=== PATIENT | male | born 1965 | race Caucasian/White ===

== ENCOUNTER 2019-02-27 18:35 | Emergency (ER) | payer BC ==
[2019-02-27 18:42] VITALS: BP 149/94
--- NOTE | 2019-02-27 18:44 | EDM.PDOC ---
ED HPI GENERAL MEDICAL PROBLEM - General Chief Complaint: ENT Problem Stated Complaint: BLOODY NOSE Time Seen by Provider: 02/27/19 18:44 - History of Present Illness INITIAL COMMENTS - FREE TEXT/NARRATIVE: 53-year-old male presents emergency room with a bloody nose. Started a short time ago about an hour and a half ago. Patient does not have recurrent problems with nosebleeds however he had infrequently would it was an older child. This years allergies been bothering him and he thinks this is what' s triggering. He hasn't had any recent nasal trauma. He's not on blood thinners. He is treated for hypertension but his blood pressure is not that high. He has no other complaints at this time - Related Data Allergies Allergy/AdvReac Type Severity Reaction Status Date / Time flu shot Allergy Fever Uncoded 09/03/16 09:19 Home Meds: Home Meds Aspirin [Adult Low Dose Aspirin EC] 81 mg PO DAILY 02/27/19 [History] Metoprolol Succinate [Toprol Xl] 25 mg PO DAILY 02/27/19 [History] Omeprazole 20 mg PO DAILY 02/27/19 [History] Terazosin [Hytrin] 1 tab PO DAILY 02/27/19 [History] Past Medical History Cardiovascular History: Reports: High Cholesterol, Hypertension Gastrointestinal History: Reports: GERD, Hiatal Hernia - Past Surgical History GI Surgical History: Reports: Yousif Fundoplication Social & Family History - Caffeine Use Caffeine Use: Reports: Coffee - Living Situation & Occupation Living situation: Reports: , with Spouse Occupation: Employed ED ROS ENT - Review of Systems Review Of Systems: See Below Constitutional: Reports: No Symptoms HEENT: Reports: Sinus Problem, Other (Nosebleeds) Respiratory: Reports: No Symptoms Cardiovascular: Reports: No Symptoms GI/Abdominal: Reports: No Symptoms ED EXAM, ENT - Physical Exam Exam: See Below Exam Limited By: No Limitations General Appearance: Alert, No Apparent Distress Nose: Normal Inspection, Other (No active bleeding at this time he's normally pressure to his nose I had him remove the pressure doesn't blow his nose into a wet towel removing a fairly large clots. After this the patient did not have any bleeding. Patient was observed for some time and still was not having any bleeding.) Mouth/Throat: Normal Inspection, Normal Gums, Normal Lips, Normal Oropharynx, Other Head: Atraumatic (No blood in the posterior pharynx), Normocephalic Neck: Normal Inspection, Supple, Non-Tender, Full Range of Motion. No: Lymphadenopathy (L), Lymphadenopathy (R) Respiratory/Chest: No Respiratory Distress, Lungs Clear, Normal Breath Sounds Cardiovascular: Regular Rate, Rhythm, No Edema, No Murmur Course - Vital Signs Last Recorded V/S: Last Vital Signs Temp 37.1 C 02/27/19 18:39 Pulse 81 02/27/19 18:39 Resp 16 02/27/19 18:39 BP 149/94 H 02/27/19 18:39 Pulse Ox 95 02/27/19 18:39 - Re-Assessments/Exams Free Text/Narrative Re-Assessment/Exam: 02/27/19 19:45 Patient is remained stable here in the Emergency room we will have him apply some [place] to the bottom of his nose to help moisturize the air. Discussed in detail several different maneuvers to help stop the bleeding if it should recur and he agrees to return to the emergency room with any uncontrollable bleeding. Departure - Departure Time of Disposition: 19:46 Disposition: Home, Self-Care 01 Clinical Impression: Anterior epistaxis - Discharge Information Referrals: PCP,Not In Area [Primary Care Provider] - Forms: ED Department Discharge Additional Instructions: Return the emergency room with any questions problems or worsening symptoms. Follow-up with your regular provider as needed. Consider sinus irrigation as we discussed.
== END 2019-02-27 20:00 | disposition home or self-care (01) ==
LOC: JD.ED 18:35
DX: R04.0 Epistaxis (principal); K21.9 Gastro-esophageal reflux disease without esophagitis; I10 Essential (primary) hypertension; E78.00 Pure hypercholesterolemia, unspecified; Z79.899 Other long term (current) drug therapy; Z79.82 Long term (current) use of aspirin; Z88.7 Allergy status to serum and vaccine
CPT/HCPCS: 99281; 99283

== ENCOUNTER 2019-03-06 19:29 | Emergency (ER) | payer BC ==
[2019-03-06 19:44] VITALS: BP 155/100
--- NOTE | 2019-03-06 20:01 | EDM.PDOC ---
ED HPI GENERAL MEDICAL PROBLEM - General Chief Complaint: ENT Problem Stated Complaint: NOSE BLEED Time Seen by Provider: 03/06/19 19:43 Source of Information: Reports: Patient, Family (), Old Records (ED 02/27/2019 ), RN Notes Reviewed History Limitations: Reports: No Limitations - History of Present Illness INITIAL COMMENTS - FREE TEXT/NARRATIVE: Medical records indicate that the patient was seen in this ED on 02/27/2019, for epistaxis. It had resolved before the patient was evaluated, after the patient pinched his nostrils. No further treatment was required. The patient now returns the ED stating that he has been having left-sided epistaxis on and off all week. Teresa's episode began around 19:00. It is painless. No recent trauma. The patient states that he pinched his nostrils, sort of, and a white nostril clip was placed on his nose upon arrival to the ED. The patient states that he had frequent epistaxis as a child, but not as an adult. The patient has not had an ENT evaluation of his epistaxis. [facility] - Related Data Allergies Allergy/AdvReac Type Severity Reaction Status Date / Time flu shot Allergy Fever Uncoded 09/03/16 09:19 Home Meds: Home Meds Aspirin [Adult Low Dose Aspirin EC] 81 mg PO DAILY 02/27/19 [History] Metoprolol Succinate [Toprol Xl] 25 mg PO DAILY 02/27/19 [History] Omeprazole 20 mg PO DAILY 02/27/19 [History] Terazosin [Hytrin] 1 tab PO DAILY 02/27/19 [History] Past Medical History Cardiovascular History: Reports: High Cholesterol (untreated), Hypertension Gastrointestinal History: Reports: GERD, Hiatal Hernia Genitourinary History: Reports: BPH Musculoskeletal History: Reports: Gout (suspected, not confirmed) - Past Surgical History HEENT Surgical History: Reports: Oral Surgery (wisdom teeth extraction) GI Surgical History: Reports: Yousif Fundoplication Neurological Surgical History: Reports: Other (See Below) (Right ulnar nerve translocation) Social & Family History - Family History Family Medical History: Noncontributory - Tobacco Use Smoking Status *Q: Never Smoker - Caffeine Use Caffeine Use: Reports: Coffee - Alcohol Use Alcohol Use History: Yes Alcohol Use Frequency: Rarely - Recreational Drug Use Recreational Drug Use: No - Living Situation & Occupation Living situation: Reports: , with Spouse Occupation: Employed ([employer]) ED ROS ENT - Review of Systems Review Of Systems: ROS reveals no pertinent complaints other than HPI. ED EXAM, ENT - Physical Exam Exam: See Below Exam Limited By: No Limitations General Appearance: Alert, WD/WN, No Apparent Distress Eye Exam: Bilateral Eye: EOMI, Normal Inspection Ears: Normal External Exam, Other (Right hearing aid) Nose: Normal Inspection, Normal Mucousa, Other (The mucous membranes are both nostrils is moist with a bloody clear liquid, but no blood or active bleeding, and no visible vessels) Mouth/Throat: Normal Inspection, Normal Gums, Normal Lips, Normal Oropharynx ( Blood-free after gargling with warm water and spitting), Normal Teeth Head: Atraumatic, Normocephalic Neck: Normal Inspection, Supple, Non-Tender, Full Range of Motion. No: Lymphadenopathy (L), Lymphadenopathy (R) Respiratory/Chest: No Respiratory Distress, Lungs Clear, Normal Breath Sounds, No Accessory Muscle Use Cardiovascular: Normal Peripheral Pulses, Regular Rate, Rhythm, No Edema, No Gallop, No JVD, No Murmur, No Rub GI/Abdominal: Normal Bowel Sounds, Soft, Non-Tender, No Organomegaly, No Distention, No Abnormal Bruit, No Mass (Male) Exam: Deferred Rectal (Males) Exam: Deferred Back: Normal Inspection, Full Range of Motion Extremities: Normal Inspection, Normal Range of Motion, No Pedal Edema, Normal Capillary Refill Neurological: Alert, Oriented, Normal Cognition, No Motor/Sensory Deficits Psychiatric: Normal Affect Skin: Warm, Dry, Intact, Normal Color, No Rash Course - Vital Signs Last Recorded V/S: Last Vital Signs Temp 36.7 C 03/06/19 19:42 Pulse 82 03/06/19 19:42 Resp 16 03/06/19 19:42 BP 155/100 H 03/06/19 19:42 Pulse Ox 98 03/06/19 19:42 - Re-Assessments/Exams Free Text/Narrative Re-Assessment/Exam: 03/06/19 19:56 When I first encountered the patient, he had a white nose clip that had been put on by one of our nurses. I had the patient remove it, and blow his nose gently. A small amount of blood clot came out, but no bleeding since. On examination, the epistaxis has stopped, and, unfortunately, no vessels are visible in either nostril. I had the patient gargle with warm water and spit. His posterior oropharynx is currently blood-free. I will have him wait for a period of time, to see if there is evidence of rebleed, however, unless I can see the source of the epistaxis, I will not be able to offer cautery. 03/06/19 20:21 Notified by Hernán GARCIA that the patient reported to her that his nose was bleeding again. I went to evaluate the patient, but he told me that it had already stopped. I reexamined him. Both of his nostrils appear exactly the same as before, without any sign of blood or active bleeding, and no visible vessels , however, there is a scant amount of blood in his posterior oropharynx, consistent with some recent bleeding versus prior blood that made its way down. I had him re-gargle his throat, and will watch him again for a period of time. 03/06/19 20:40 I reexamined the patient. Still no nosebleed, both nostrils looked pristine, and no blood in the posterior oropharynx. I will discharge him home with the recommendation that he start using [id number] oxymetazoline nasal spray twice a day, apply a thin smear of petroleum jelly in each nostril, and follow- up with ENT at the next available appointment. Departure - Departure Time of Disposition: 20:40 Disposition: Home, Self-Care 01 Condition: Good Clinical Impression: Epistaxis - Discharge Information *PRESCRIPTION DRUG MONITORING PROGRAM REVIEWED*: Not Applicable *COPY OF PRESCRIPTION DRUG MONITORING REPORT IN PATIENT MARIANNA: Not Applicable Referrals: Yuliya Lora MD [Primary Care Provider] - Geovany Jason MD [Ordering Only Provider] - Forms: ED Department Discharge Additional Instructions: You were seen in the emergency room for a recurrent left sided nosebleed. Unfortunately, your nosebleed had stopped, and your examination was unremarkable. The source of the nosebleed was not able to be identified. We recommend that you purchase [id number] oxymetazoline in a "pump mist" bottle. [place] one spray up each nostril every 12 hours, for the next 5 days. Do not continue to use it beyond 5 days. We recommend that you apply a thin smear of petroleum jelly to each nostril twice a day, for example, in the morning, and at bedtime. Follow-up with the ENT Dr. Geovany Jason, in [place], at the next available appointment. If any other problems, please do not hesitate to return to the ER.
== END 2019-03-06 21:10 | disposition home or self-care (01) ==
LOC: JD.ED 19:29
DX: R04.0 Epistaxis (principal); I10 Essential (primary) hypertension; K21.9 Gastro-esophageal reflux disease without esophagitis; E78.00 Pure hypercholesterolemia, unspecified; Z79.899 Other long term (current) drug therapy; Z88.7 Allergy status to serum and vaccine
CPT/HCPCS: 99283

== ENCOUNTER 2022-08-21 17:51 | Emergency (ER) | payer BC, OTHER ==
[2022-08-21 18:07] VITALS: BP 153/101; PULSE 70
[2022-08-21] MEDS ORDERED: Ketorolac 60 MG/2 ML SDV IM ONE (18:56)
[2022-08-21] MEDS ORDERED: Orphenadrine 100 MG Tab.ER PO ONE (18:56)
== END 2022-08-21 20:30 | disposition home or self-care (01) ==
LOC: JD.ED 17:51
DX: S29.011A Strain of muscle and tendon of front wall of thorax, initial encounter (principal); E78.00 Pure hypercholesterolemia, unspecified; I10 Essential (primary) hypertension; K21.9 Gastro-esophageal reflux disease without esophagitis; Z88.7 Allergy status to serum and vaccine; Z79.899 Other long term (current) drug therapy
CPT/HCPCS: 96372; 99283; A9270; J1885

== ENCOUNTER 2023-04-22 07:55 | Emergency (ER) | payer OTHER ==
[2023-04-22] MEDS ORDERED: Lidocaine 1% 5 ML VIAL INJECT ONE (08:19)
[2023-04-22] MEDS ORDERED: Bacitracin Oint 15 GM Tube TOP ONE (08:19)
[2023-04-22] MEDS ORDERED: Lidocaine 1% 10 ML MDV INJECT ONE (08:30)
[2023-04-22] MEDS ORDERED: Diphtheria,Pertussis(Acell),Tetanus Vaccine 0.5 ML Syringe IM ONE (08:41)
[2023-04-22 10:42] VITALS: BP 153/92; PULSE 58
== END 2023-04-22 09:06 | disposition home or self-care (01) ==
LOC: JD.ED 07:55
DX: S61.011A Laceration without foreign body of right thumb without damage to nail, initial encounter (principal); E78.00 Pure hypercholesterolemia, unspecified; I10 Essential (primary) hypertension; K21.9 Gastro-esophageal reflux disease without esophagitis; Z88.8 Allergy status to other drugs, medicaments and biological substances; Z88.7 Allergy status to serum and vaccine; Z79.899 Other long term (current) drug therapy; Z23 Encounter for immunization; W26.0XXA Contact with knife, initial encounter
CPT/HCPCS: 12002; 90471; 90715; 99282; A9270; J3490

== ENCOUNTER 2023-07-05 08:31 | Day surgery (SDC) | payer OTHER ==
[~2023-07-05 08:31] MED LIST: Sodium Chloride 0.9% 10 ML Syringe FLUSH PRN
[2023-07-05] MEDS: Lactated Ringers 1,000 ML IV SCH ×2 (09:00→12:13)
[2023-07-05] MEDS ORDERED: Sodium Chloride 0.9% 10 ML Syringe FLUSH SCH (09:00)
[2023-07-05] MEDS ORDERED: Propofol 200 MG/20 ML SDV ONE (09:09)
[2023-07-05] MEDS ORDERED: fentaNYL 100 MCG/2 ML SDV ONE (09:10)
[2023-07-05] MEDS ORDERED: Lidocaine 1% 6 ML ONE (09:11)
[2023-07-05] MEDS ORDERED: Succinylcholine 200 MG/10 ML MDV ONE (09:11)
[2023-07-05] MEDS ORDERED: Ondansetron 4 MG/2 ML SDV ONE (09:11)
[2023-07-05] MEDS ORDERED: ceFAZolin 2 GM Vial ONE (09:24)
[2023-07-05] MEDS ORDERED: Ketorolac 30 MG/ML SDV ONE (09:36)
[2023-07-05] MEDS ORDERED: EPINEPHrine 1 MG/ML SDV ONE (10:05)
[2023-07-05] MEDS ORDERED: Bupivacaine 0.5% 30 ML SDV ONE (10:05)
[2023-07-05] MEDS ORDERED: Ondansetron 4 MG/2 ML SDV IVPUSH PRN (12:39)
[2023-07-05 13:45] VITALS: BP 138/78; PULSE 64
== END 2023-07-05 13:05 | disposition home or self-care (01) ==
LOC: JD.SDS 08:31
PROVIDERS: ATTEND Surgery
DX: D17.21 Benign lipomatous neoplasm of skin and subcutaneous tissue of right arm (principal); K21.9 Gastro-esophageal reflux disease without esophagitis; M1A.9XX0 Chronic gout, unspecified, without tophus (tophi); G43.909 Migraine, unspecified, not intractable, without status migrainosus; I10 Essential (primary) hypertension; E78.00 Pure hypercholesterolemia, unspecified; N40.0 Benign prostatic hyperplasia without lower urinary tract symptoms; Z88.8 Allergy status to other drugs, medicaments and biological substances; Z79.899 Other long term (current) drug therapy; Z88.7 Allergy status to serum and vaccine
CPT/HCPCS: 23071; J0171; J0330; J0690; J1885; J2405; J2704; J3010; J3490; J7120; 00300; 88304